=== PATIENT | female | born 1950 | race Two or more races ===

== ENCOUNTER 2020-07-05 09:10 | Outpatient (CLI) | payer OTHER | END 2020-07-05 09:15 | disposition home or self-care (01) | LOC: SONOGRAMA 09:10 | PROVIDERS: ATTEND Pathology Anatomic Pathology & Clinical Pathology | DX: E04.2 Nontoxic multinodular goiter (principal); E07.89 Other specified disorders of thyroid; E04.1 Nontoxic single thyroid nodule; D34 Benign neoplasm of thyroid gland ==